=== PATIENT | female | born 1990 | race Caucasian/White ===

== ENCOUNTER 2024-02-17 10:21 | Emergency (ER) | payer OTHER ==
[2024-02-17 10:49] VITALS: O2SAT 100
[2024-02-17 11:02] LABS: BILIRUBIN,URINE NEGATIVE (NEGATIVE); GLUCOSE, URINE (UA) NEGATIVE (NEGATIVE); KETONES,URINE (UA) NEGATIVE (NEGATIVE); LEUKOCYTE ESTERASE, URINE MODERATE (NEGATIVE); NITRITE,URINE POSITIVE (NEGATIVE); OCCULT BLOOD,URINE LARGE (NEGATIVE); PROTEIN,URINE >=300 mg/dL (NEGATIVE); UROBILINOGEN,URINE 0.2 (NORMAL) E.U./dL (NORMAL)
[2024-02-17 11:03] LABS: CLARITY,URINE CLOUDY (CLEAR)
[2024-02-17 11:05] LABS: HCG UR QUAL NEGATIVE
[2024-02-17 11:14] LABS: BACTERIA,URINE Few /HPF (None Seen); SQUAMOUS EPITHELIAL CELL,UR FEW Squamous (<= Few); WBC CLUMPS,URINE PRESENT; WBC,URINE >25 /HPF (0-5)
--- NOTE | 2024-02-17 11:37 | ED Physician Documentation ---
History of Present Illness - Stated complaint Stated Complaint: ,LOWER BACK PX,DEHYDRATION - Chief complaint Chief Complaint: UTI - Additonal information Additional information: Patient is a healthy 33-year-old female presenting to the emergency department with pelvic pain low back pain and right flank pain. She notes UTI symptoms of frequency dysuria and discoloration to her urine started about 3 weeks ago. She denies any fevers but has had some chills. She notes pain in her right flank has been going on since Saturday. She thought she had a UTI about 3 weeks ago but was hoping it would go away on its own. She did not see anyone for the symptoms. Symptoms seem to progress on Saturday and patient has severe pain to her right flank. She notes urinary symptoms started prior to flank pain symptoms.Patient denies being . She notes she has a history of UTIs and has had pyelonephritis in the past. 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 : Chronic bladder infection HEENT: None Psych: None Musculoskeletal: None Derm: None - Past Surgical History Past Surgical History: Yes /WORM PACKER: section, Tubal ligation - Present Medications Home Medications: Ambulatory Orders Medication Instructions Recorded Confirmed Cefdinir 300 mg PO BID #20 cap 02/17/24 - Allergies Allergies/Adverse Reactions: Allergies Allergy/AdvReac Type Severity Reaction Status Date / Time Penicillins Allergy Anaphylaxis Verified 02/17/24 10:38 - Social History Does the pt smoke?: Yes Smoking Status: Current every day smoker Does the pt drink ETOH?: Yes Does the pt have substance abuse?: Yes Substance Use and Type: Marijuana - Immunizations Immunizations are current?: Yes - POLST Patient has POLST: No PD ED PE NORMAL - Vitals Vital signs reviewed: Yes - General General: Alert and oriented X 3 - HEENT HEENT: Atraumatic - Neck Neck: Supple, no meningeal sign - Cardiac Cardiac: RRR, No murmur, No gallop, No rub - Respiratory Respiratory: No respiratory distress, Clear bilaterally - Abdomen Abdomen: Normal bowel sounds, Other (Abdomen is tender on examination active bowel sounds on auscultation. Reproducible midline abdominal pelvic tenderness with right-sided CVA tenderness. No left-sided CVA tenderness appreciated.) - Female Female : Deferred - Rectal Rectal: Deferred - Derm Derm: Normal color, No rash - Extremities Extremities: No deformity - Neuro Neuro: Alert and oriented X 3 - Psych Psych: Normal mood Results - Vitals Vitals: Vital Signs - 24 hr 02/17/24 10:38 Temperature 37.4 C Heart Rate 86 Respiratory 16 Rate Blood Pressure 144/110 H O2 Saturation 100 Oxygen O2 Source Room air - Labs Labs: Laboratory Tests 02/17/24 10:55 Urine Color DARK YELLOW Urine Clarity CLOUDY Urine pH 6.0 Ur Specific [place] 1.025 Urine Protein >=300 H Urine Glucose (UA) NEGATIVE Urine Ketones NEGATIVE Urine Occult Blood LARGE H Urine Nitrite POSITIVE H Urine Bilirubin NEGATIVE Urine Urobilinogen 0.2 (NORMAL) Ur Leukocyte Esterase MODERATE H Urine RBC 6-10 H Urine WBC >25 H Urine WBC Clumps PRESENT Ur Squamous Epith Cells FEW Squamous Urine Bacteria Few Ur Microscopic Review INDICATED Urine Culture Comments INDICATED Urine HCG, Qual NEGATIVE PD Medical Decision Making - ED course Complexity details: reviewed old records, reviewed results ED course: Patient is a 33-year-old female presenting to the emergency department with right flank pain. Symptoms have been going on since last Saturday patient had onset of right flank pain. She notes prior to this about 3 weeks ago she was having UTI symptoms with frequency discoloration of urine and dysuria. She notes the symptoms have progressively gotten worse until Saturday when she developed right flank pain with her symptoms. She notes intermittent chills but no fevers at home. She denies any nausea or vomiting associate with symptoms. No history of nephrolithiasis. Patient has history of UTIs and symptoms feel similar. Vitals are stable on arrival patient is afebrile nontachycardic. Physical exam shows right lower pelvic pain and right CVA tenderness. Normoactive bowel sounds no rebound or guarding. No acute abdomen noted on examination. Discussed with patient reassuring physical exam symptoms most likely secondary to pyelonephritis given urine analysis here shows greater than 25 white blood cells with positive nitrites here in emergency department. There is blood in the urine however given symptoms of UTI most likely secondary to hematuria with cystitis. Additionally low suspicion for any nephrolithiasis as patient has been having urinary symptoms going on for over 3 weeks prior to developing right flank pain. Findings more consistent with pyelonephritis. Given symptoms consistent with pyelonephritis will start patient on cefdinir. Patient instructed to take antibiotics as prescribed and return to the emergency department with any worsening pain fevers persistent dysuria nausea vomiting or any other new or worsening symptoms. Patient understands and is agreeable with this plan. Departure - Departure Disposition: 01 Home, Self Care Clinical Impression: Pyelonephritis, Right flank pain Condition: Good Instructions: Pyelonephritis Dc Comments: You were seen here in the emergency department for your back pain your workup here in the emergency department showed you have a UTI with right-sided flank pain symptoms are concerning for right-sided pyelonephritis. I have started you on antibiotics please take as prescribed you need to return to the emergency department with any worsening pain fevers difficulty urinating or if symptoms do not resolve in 3 to 5 days. You should follow-up with your PCP in 1 week to en sure resolution of symptoms.
[2024-02-17 11:43] VITALS: BP 151/101
--- NOTE | 2024-02-20 11:56 | ED Physician Documentation ---
ED Addendum - Addendum Addendum: 02/20/24 11:56 Culture reviewed, she is on cefdinir which should be fine as the isolate is sensitive to all cephalosporins.
== END 2024-02-17 11:46 | disposition home or self-care (01) ==
LOC: ED 10:21
DX: N12 Tubulo-interstitial nephritis, not specified as acute or chronic (principal); F17.200 Nicotine dependence, unspecified, uncomplicated
CPT/HCPCS: 81001; 81003; 81025; 87086; 87181; 99282; 99283